=== PATIENT | male | born 1970 | race African-American/Black ===

== ENCOUNTER → 2024-08-22 12:15 | Outpatient (REF) | payer BC, SELFPAY | LOC: HWRAD 12:15 | PROVIDERS: ATTENDING PHYSICIAN Nurse Practitioner Family | DX: R05.9 Cough, unspecified (principal) | CPT/HCPCS: 71046 ==

== ENCOUNTER 2025-03-29 11:57 | Emergency (ER) | payer BC, SELFPAY ==
[2025-03-29 12:01] VITALS: BP 150/97
[2025-03-29] MEDS: NUPERCAINAL 1% OINTMENT 1 APPLIC TOPICAL (13:00)
--- NOTE | 2025-03-29 13:26 | ED.GENMED ---
History of Present Illness
General
Chief Complaint: Anal/Rectal Problem
Source: patient
Exam Limitations: none
Time Seen by Provider: 03/29/25 12:28
History of Present Illness
History of Present Illness:
54-year-old male presents complaining of worsening hemorrhoid pain over the past several days. He has a remote history of hemorrhoids. He had a surgical procedure for them about 20 years ago. He has been using his typical remedies of warm soaks
and [id number] topical medications without relief. He does admit to constipation. 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 No fevers. No drainage. No urinary symptoms. No other complaints
Past History
Past History
ED Past Medical History: None
ED Past Surgical History: None
Social History
Tobacco: Non-smoker
Living: with family
Phy Exam
Physical Exam
Physical Exam:
General: Well-appearing male no acute respiratory distress
HEENT: Normocephalic atraumatic
Rectal exam: Large hemorrhoids nearly circumferential left greater than the right without evidence of thrombosis. These are tender. No drainage.
Course
Orders/Labs/Results
Orders:
Orders
03/29/25 12:52
Dibucaine [Nupercainal 1% Ointment] See Dose Instructions TOPICAL NOW STA
Vital Signs
Initial and Last Documented VS:
Initial Vital Signs
Temp Pulse Resp BP Pulse Ox
98.2 F 91 22 150/97 98
03/29/25 12:01 03/29/25 12:01 03/29/25 12:01 03/29/25 12:01 03/29/25 12:01
Last Documented Vital Signs
Temp Pulse Resp BP Pulse Ox
98.2 F 91 22 150/97 98
03/29/25 12:01 03/29/25 12:01 03/29/25 12:01 03/29/25 12:01 03/29/25 12:01
MDM/Problems Addressed
Differential Diagnosis Includes:
Large hemorrhoids no evidence of thrombosis. At this point from emergency room standpoint no indication for any admission or surgical procedure however will prescribe topical anesthetic and topical steroid and advise follow-up colorectal. Patient
in agreement agreement. Patient's spouse in the room and agreed.
*Pulse Oximetry
SaO2: 98
Oxygen Mode of Delivery: Room air
Patient hypoxic: no
*Critical Care Note
Total Time (30-74mins, 75-104mins- exclusive of procedures): Not Applicable
ED Attending Note
-
Portions of this chart may have been created with voice recognition software.� Occasional wrong word or��sound alike� substitutions may have occurred due to the inherent limitations of voice recognition software.
Discharge Plan
Departure
Patient Disposition: Home (Routine Discharge)
Date of Disposition: 03/29/25
Time of Disposition: 13:27
Patient with high blood pressure during this ER visit?: No
Discharge Problem:
Hemorrhoids
Instructions: Hemorrhoids (DC)
Prescriptions:
New
hydrocortisone [Proctocort] 1 % cream
1 applic topical TID Qty: 28.35 0RF
Referrals:
Tommy Jerez MD [Active, Colo[facility]]
UNKNOWN - PT DOES,NOT KNOW [Family Provider]
Activity Restrictions/Additional Instructions:
Continue to use topical medications as prescribed. Follow-up with colorectal. Use MiraLAX to soften the stool avoid heavy lifting. Return if needed otherwise
Interventions
Interventions:
*Risk Screen - Suicide Last Done: 03/29/25 12:01
*General Assessment Last Done: 03/29/25 12:01
*Neglect/Abuse Screening Last Done: 03/29/25 12:01
*ED- Fall Risk Assessment Last Done: 03/29/25 12:20
*ED COVID-19 Vaccine History Last Done: 03/29/25 12:20
ED-Skin Assessment Last Done: 03/29/25 12:20
Discharge Date and Time
Print Language: CUBAN
== END 2025-03-29 13:51 | disposition home or self-care (01) ==
LOC: EMR 11:57
PROVIDERS: EMERGENCY PHYSICIAN Emergency Medicine
DX: K64.9 Unspecified hemorrhoids (principal); Z87.19 Personal history of other diseases of the digestive system
CPT/HCPCS: 99282